=== PATIENT | female | born 1995 | race Caucasian/White ===

== ENCOUNTER 2020-06-10 18:13 | Emergency (ER) | payer OTHER ==
[~2020-06-10] VITALS: Ht 170.2 cm; Wt 69.0 kg
--- NOTE | 2020-06-10 19:12 | PHYS DOC ---
Past History Past Medical History: No Pertinent History Past Surgical History: Other Additional Past Surgical Histo: wisdom teeth Alcohol Use: None General Adult EDM: Chief Complaint: VAGINAL BLEEDING HPI: HPI: "... I am having bleeding like a period since yesterday.. and I am about 11 weeks .. I was due for my lst OB visit tomorrow morning.. thru. [facility] referral..." Patient is a 25 year old female who presents with above hx and complaints of vagina bleeding since yesterday. Patient did have sex yesterday. Patient denies any trauma at home. Patient states is her first . Prior visit at [facility] estimate her is approximately 11 weeks on. Patient has been taking vitamins. No history of STDs. No history of travel. No history of severe ill contacts. Patient's past medical history significant for thyroid disease as a child which she is monitored regularly through her primary care. Patient is accompanied by her . 's blood type is O+ patient is unaware of her blood type. Review of Systems: Review of Systems: Constitutional: Denies fever or chills Eyes: Denies change in visual acuity HENT: Denies nasal congestion or sore throat Respiratory: Denies cough or shortness of breath Cardiovascular: Denies chest pain or edema GI: Complains of some cramping, low back pain and abdomen cramping abdominal pain, nausea. Denies, vomiting, bloody stools or diarrhea : Denies dysuria Musculoskeletal: Some low back pain. Integument: Denies rash Neurologic: Denies headache, focal weakness or sensory changes Endocrine: Denies polyuria or polydipsia Lymphatic: Denies swollen glands Psychiatric: Denies depression or anxiety Family History: Family History: Noncontributory to presentation Current Medications: Current Meds: See nursing for home meds Allergies: Allergies: Allergies Coded Allergies Type Severity Reaction Last Updated Verified No Known Drug Allergies 06/10/20 No Physical Exam: PE: Constitutional: Well developed, well nourished, moderate acute distress, non- toxic appearance. [] HENT: Normocephalic, atraumatic, bilateral external ears normal, oropharynx moist, no oral exudates, nose normal. [] Eyes: PERRLA, EOMI, conjunctiva normal, no discharge. [] Neck: Normal range of motion, no tenderness, supple, no stridor. Full thyroid. Cardiovascular:Heart rate regular rhythm, no murmur [] Lungs & Thorax: Bilateral breath sounds clear to auscultation [] Abdomen: Bowel sounds normal, soft, lower pelvic tenderness, no masses, no pulsatile masses. Bleeding from os. Os closed. No No cervical motion tenderness. Rectal nontender. Skin: Warm, dry, no erythema, no rash. [] Back: No tenderness, no CVA tenderness. [] Extremities: No tenderness, no cyanosis, no clubbing, ROM intact, no edema. [] Neurologic: Alert and oriented X 3, normal motor function, normal sensory function, no focal deficits noted. [] DTRs +2 patella and brachial. Psychologic: Affect anxious, judgement normal, mood normal. [] Current Patient Data: Vital Signs: Vital Signs Date Time Temp Pulse Resp B/P (MAP) Pulse Ox O2 Delivery O2 Flow Rate FiO2 06/10/20 18:35 98.9 85 16 100 Room Air EKG: EKG: [] Radiology/Procedures: Radiology/Procedures: [][place] [address] IMAGING REPORT Signed PATIENT: TEODORA BREEN ACCOUNT: [id number] : 1995 LOCATION: ER AGE: 25 SEX: F EXAM STATUS: REG ER ORD. PHYSICIAN: LEONARDO PINZON MD REASON: pain, gravid BLEEDING PROCEDURE: OB <14 WKS Obstetrical ultrasound 06/10/2013. Reason for exam: Bleeding. FINDINGS: No adnexal mass is seen. There is no apparent gestational sac. The uterus shows heterogeneous echotexture in the endometrial region with small cystic areas. The endometrium is poorly defined. No free fluid is seen. IMPRESSION: No normal is seen. There is abnormal heterogeneous echogenic material in the endometrial region. Findings are concerning for molar . Electronically signed by: Jennifer Michel Jr., MD (06/10/2020 8:13 PM) [facility] DICTATED AND SIGNED BY: JENNIFER MICHEL Jr, MD DATE: 06/10/202010 CC: LEONARDO PINZON MD; ARNULFO DIXON ~MTH0 0 Heart Score: Risk Factors: Risk Factors: DM, Current or recent (<one month) smoker, HTN, HLP, family history of CAD, obesity. Risk Scores: Score 0 - 3: 2.5% MACE over next 6 weeks - Discharge Home Score 4 - 6: 20.3% MACE over next 6 weeks - Admit for Clinical Observation Score 7 - 10: 72.7% MACE over next 6 weeks - Early Invasive Strategies Course & Med Decision Making: Course & Med Decision Making Pertinent Labs and Imaging studies reviewed. (See chart for details) Continue pad counts. Tylenol only for pain. Continue vitamins. Follow-up primary care. Keep follow-up appointment with OB. Take ultrasound disc with you. Take Keflex 500 three times a day. Follow up cultures. Call in Am for apt. time. Impression: 1. Threatened vs Molar ? 2. BHCG= 278,418 3. HGB= 12.4 4. Mild Elevation Alt 185, AST 52, Alkphos 32 5. EDC = 12/30/20? 6. UTI [] Huber Disclaimer: Huber Disclaimer: This electronic medical record was generated, in whole or in part, using a voice recognition dictation system. Departure Departure: Referrals: ARNULFO DIXON (PCP) Scripts Cephalexin (KEFLEX) 750 Mg Capsule 500 MG PO TID for UTI for 7 Days, #14 CAP Prov: LEONARDO PINZON MD 06/10/20 LEONARDO PINZON MD Jun 10, 2020 19:12
[2020-06-10] MEDS ORDERED: IV RINGERS SOLUTION,LACTATED 1,000 ML IV SCH (19:30)
[2020-06-10] MEDS ORDERED: ONDANSETRON PF 4 MG/2 ML VIAL. IVP ONE (19:30)
[2020-06-10] MEDS ORDERED: FAMOTIDINE 20 MG/2 ML VIAL IVP ONE (19:30)
[2020-06-10 20:09] LABS: BASO % 1 % (0-3); EOS % 1 % (0-3); HEMATOCRIT 37.4 % (36.0-47.0); HEMOGLOBIN 12.4 g/dL (12.0-15.5); LYMPH % 13 % (24-48); MEAN CORPUSCULAR HEMOGLOBIN 29 pg (25-35); MEAN CORPUSCULAR HGB CONC 33 g/dL (31-37); MEAN CORPUSCULAR VOLUME 89 fL (79-100); MONO # 0.5 x10^3/uL (0.0-1.1); MONO % 6 % (0-9); NEUT # 5.9 x10^3uL (1.8-7.7); NEUT % 80 % (31-73); PLATELET COUNT 269 x10^3/uL (140-400); RED BLOOD COUNT 4.23 x10^6/uL (3.50-5.40); WHITE BLOOD COUNT 7.4 x10^3/uL (4.0-11.0)
[2020-06-10 20:09] LABS: BARBITURATES NEG (NEG); BENZODIAZEPINES NEG (NEG); CANNABINOIDS NEG (NEG); COCAINE NEG (NEG); METHADONE NEG (NEG); OPIATES NEG (NEG); PHENCYCLIDINE NEG (NEG)
[2020-06-10 20:14] LABS: AMPHETAMINE/METHAMPHETAMINE NEG (NEG)
--- NOTE | 2020-06-10 20:15 | RAD ---
Obstetrical ultrasound 06/10/2013. Reason for exam: Bleeding. FINDINGS: No adnexal mass is seen. There is no apparent gestational sac. The uterus shows heterogeneo us echotexture in the endometrial region with small cystic areas. The endometrium is poorly defined. No free fluid is seen. IMPRESSION: No normal is seen. There is abnormal heterogeneous echogenic material in the en dometrial region. Findings are concerning for molar . Electronically signed by: De Michel Jr., MD (06/10/2020 8:13 PM) [facility]
[2020-06-10 20:25] LABS: CALCIUM 8.9 mg/dL (8.5-10.1); CREATININE 0.8 mg/dL (0.6-1.0); GFR 88.1; POTASSIUM 3.9 mmol/L (3.5-5.1)
[2020-06-10 20:30] LABS: ALBUMIN 3.8 g/dL (3.4-5.0); DIRECT BILIRUBIN 0.2 mg/dL (0.0-0.2); MAGNESIUM 1.9 mg/dL (1.8-2.4); TOTAL BILIRUBIN 0.5 mg/dL (0.2-1.0); TOTAL PROTEIN 7.4 g/dL (6.4-8.2)
[2020-06-10 20:51] LABS: BACTERIA,URINE 0 /HPF (0-FEW); BILIRUBIN,URINE MOD (NEG); CLARITY,URINE TURBID; COLOR,URINE RED; GLUCOSE,URINE NEG (NEG); NITRITE,URINE POS (NEG); RBC,URINE TNTC /HPF (0-2); SQUAMOUS EPITHELIAL CELL,UR FEW /LPF; WBC,URINE 0 /HPF (0-4)
[2020-06-10] MEDS ORDERED: CEPH750C9 PO (21:08)
[2020-06-10] MEDS ORDERED: CEPHALEXIN 250 MG CAPSULE PO ONE (21:30)
[2020-06-10 21:44] VITALS: BP 124/78
[2020-06-12 19:11] LABS: CHLAMYDIA PROBE Negative (Negative)
== END 2020-06-10 21:44 | disposition home or self-care (01) ==
LOC: ER 18:13
DX: O23.41 Unspecified infection of urinary tract in pregnancy, first trimester (principal); Z3A.11 11 weeks gestation of pregnancy; R79.89 Other specified abnormal findings of blood chemistry
CPT/HCPCS: 36415; 76801; 80048; 80076; 80307; 81001; 82550; 83690; 83735; 84443; 84702; 85025; 85610; 85730; 86900; 86901; 87086; 87491; 87591; 96361; 96374; 96375; 99284; J2405; J3490; J7120; Q0111